=== PATIENT | male | born 1995 | race African-American/Black ===

== ENCOUNTER 2018-06-01 05:45 | Emergency (ER) | payer OTHER ==
[~2018-06-01] VITALS: Ht 193 cm; Wt 94.7 kg
[2018-06-01] MEDS ORDERED: SODIUM CHLORIDE 0.9% 1,000ML IVBOLUS ONE (06:00)
[2018-06-01] MEDS ORDERED: ONDANSETRON 2MG/ML, 2ML IVPush ONE (06:00)
[2018-06-01] MEDS ORDERED: FAMOTIDINE 20 MG/2 ML IVP ONE (06:00)
[2018-06-01] MEDS ORDERED: ONDANSETRON 2MG/ML, 2ML ONE (06:14)
[2018-06-01] MEDS ORDERED: FAMOTIDINE 20 MG/2 ML ONE (06:14)
[2018-06-01] MEDS ORDERED: DEXAMETHASONE 4 MG/ML, 1ML ONE (06:16)
[2018-06-01] MEDS ORDERED: PLEASE ENTER ALLERGIES MC SCH (06:30)
[2018-06-01] MEDS ORDERED: DEXAMETHASONE 4 MG/ML, 1ML PO ONE (06:30)
--- NOTE | 2018-06-01 06:32 | NUR ---
PT REPORTS HE WAS SEEN AT [facility] 4 DAYS AGO AND TOLD HE HAS MONO. PT HAS BEEN VOMITING AND REPORTS PAIN IN HIS THROAT. MOTHER AT BEDSIDE. CALL LIGHT IN PLACE. VS STABLE. WILL CONTINUE TO MONITOR.
[2018-06-01 06:35] VITALS: BP 122/102
--- NOTE | 2018-06-01 06:56 | NUR ---
REPORT GIVEN TO CECILIA BRIGGS
--- NOTE | 2018-06-01 07:18 | NUR ---
REC BS REPORT PT RESTING NADN WAITING DISPO
== END 2018-06-01 07:47 | disposition home or self-care (01) ==
LOC: ED 07:09
DX: B27.90 Infectious mononucleosis, unspecified without complication (principal); J02.9 Acute pharyngitis, unspecified; R11.10 Vomiting, unspecified
CPT/HCPCS: 96361; 96374; 96375; 99283; J1100; J2405; J3490; J7030